=== PATIENT | male | born 1980 | race Caucasian/White ===

== ENCOUNTER 2022-08-02 02:44 | Emergency (ER) | payer BC ==
[~2022-08-02] VITALS: Ht 170.2 cm; Wt 73.0 kg
[2022-08-02] MEDS ORDERED: CEFAZOLIN 1000MG PREMIX 50 ML IV ONE (03:00)
[2022-08-02] MEDS ORDERED: LIDOCAINE HCL 1% 20ML VIAL (Pyxis) INJ INFIL ONE (03:00)
[2022-08-02] MEDS ORDERED: TETANUS, DIPHTHERIA, PERTUSSIS VAC/PF 0.5ML (>10YR OLD) IM ONE (03:00)
[2022-08-02] MEDS ORDERED: CEFAZOLIN 1000MG PREMIX 50 ML IV NR (03:30)
[2022-08-02] MEDS ORDERED: LIDOCAINE HCL 1% 20ML VIAL (Pyxis) INJ INFIL NR (03:30)
[2022-08-02] MEDS ORDERED: LIDOCAINE HCL 1% 10 MG/ML 10ML VIAL INJ NR (04:00)
[2022-08-02 05:10] VITALS: BP 139/94
[2022-08-02] MEDS ORDERED: IBUP-2029 MT (05:38)
== END 2022-08-02 06:00 | disposition home or self-care (01) ==
LOC: ER 03:08
DX: S01.81XA Laceration without foreign body of other part of head, initial encounter (principal); S03.2XXA Dislocation of tooth, initial encounter; F10.129 Alcohol abuse with intoxication, unspecified; Y90.9 Presence of alcohol in blood, level not specified; Y08.89XA Assault by other specified means, initial encounter; Y93.89 Activity, other specified; Y92.89 Other specified places as the place of occurrence of the external cause
CPT/HCPCS: 12013; 70450; 70486; 71045; 72125; 96365; 99284; J0690; J3490; Z7610

== ENCOUNTER 2022-08-10 05:13 | Emergency (ER) | payer BC ==
[~2022-08-10] VITALS: Ht 170.2 cm; Wt 73.0 kg
[~2022-08-10 05:13] MED LIST: IBUP-2029 MT
[2022-08-10 05:34] VITALS: BP 127/88
== END 2022-08-10 07:00 | disposition home or self-care (01) ==
LOC: ER 05:13
DX: Z48.02 Encounter for removal of sutures (principal)
CPT/HCPCS: 99281